=== PATIENT | female | born 1985 ===

== ENCOUNTER 2017-08-27 07:26 | Inpatient (IN) | payer MEDICAID ==
[2017-08-27] MEDS ORDERED: Oxytocin 30 units/LR 500ML 30 U/500 ML BAG IV ONE (07:36)
[2017-08-27] MEDS ORDERED: ceFAZolin IV 2 gm in Dextrose 2 GM/50 ML BAG IVPB ONE (08:30)
[2017-08-27] MEDS: Lactated Ringer's 2,000 ML IV SCH ×2 (08:30→09:30)
[2017-08-27 08:44] LABS: BASO % 0.6 % (0.0-2.0); EOS # 0.1 K/uL (0.0-0.7); EOS % 1.5 % (0.0-4.0); HEMOGLOBIN 11.2 g/dL (12.0-16.0); LYMPH # 1.5 K/uL (1.0-4.3); LYMPH % 21.6 % (20.0-40.0); MEAN CELL VOLUME 81.9 fl (81.0-99.0); MEAN CORPUSCULAR HEMOGLOBIN 27.2 pg (27.0-31.0); MEAN CORPUSCULAR HGB CONC 33.2 g/dL (33.0-37.0); MEAN PLATELET VOLUME 7.9 fl (7.2-11.7); MONO # 0.6 K/uL (0.0-0.8); MONO % 7.8 % (0.0-10.0); NEUT # 4.9 K/uL (1.8-7.0); NEUT % 68.5 % (50.0-75.0); NRBC % 0.1 % (0.0-0.0); RBC 4.13 Mil/uL (3.80-5.20); RED CELL DISTRIBUTION WIDTH 15.9 % (11.5-14.5); WHITE BLOOD COUNT 7.1 K/uL (4.8-10.8)
--- NOTE | 2017-08-27 10:56 | OBADHP ---
Datetime: 08/27/2017 07:45 Admit Comment, IP Provider: 31 yo EGA 39 confirmed by ultrasound present for scheduled repea t c/s. + FM. Denies: CTX, VB, LOF. ROS: Denies: dizziness, headache, blurred vision, CP/SOB, N/V, dysuria PNC: Dr. Barnes. Labs: HIV: NEG; HBSAG: NEG; GBS: NEG; RUBELLA: IM; GC: NEG; C: NEG; RPR: NEG; O+, Ab: neg. obhx: c/s 2013 FT, failed IOL. pmhx: denies std famhx: none soc: lives with and son. no smoking, alcohol, illicit drugs surg: c/s 2013 NKDA Meds: PNV O: General: AAOx3 Cardiac: S1S2 no murmurs Lungs: CTA bilaterally, no wheezing Abodmen: gravid, nontender, active bowel sounds CTA non tender No calf pain A/P: 31 yo F w/ IUP 39.4 presents for scheduled repeat c/s. -Admit to L_d for c/s -Labs: CBC, Type and screen, -IVF: 1 L LR bolus -Abx: Ancef 2 gm IV Case d/w Dr. Barnes YBecerra PGY 1 Pelvic Type - PN: Not Done Extremities - PN: Normal Abdomen - PN: Normal Back - PN: Normal Breast - PN: Not Done Lungs - PN: Normal Heart - PN: Normal Thyroid - PN: Not Done Neurologic - PN: Normal HEENT - PN: Normal General - PN: Normal Membranes, Provider: Intact Vital Signs Provider: Reviewed; Within Normal Limits IP Chief Complaint: Scheduled Section NICHD Decel Fetus A IP Provider: None (Annotations: Data stored by CPN on behalf of user) Genitourinary Exam: Not Done DTRs - PN: Normal IP Adm Impression: Term, intrauterine ; No Active Labor; Intact Membranes IP Admit Plan: Admit to unit; Initiate Section protocol
[2017-08-27] MEDS ORDERED: DiphenhydrAMINE 50 mg/ml Inj IVP PRN ×2 (12:35→19:45)
[2017-08-27] MEDS ORDERED: Oxycodone/Acetaminophen 5/325 mg Tab PO PRN (13:15)
[2017-08-27] MEDS ORDERED: Lactated Ringer's 1,000 ML IV SCH ×2 (18:30→19:45)
[2017-08-28 06:37] LABS: BASO % 0.3 % (0.0-2.0); EOS % 0.4 % (0.0-4.0); HEMOGLOBIN 10.1 g/dL (12.0-16.0); LYMPH # 1.1 K/uL (1.0-4.3); LYMPH % 9.5 % (20.0-40.0); MEAN CELL VOLUME 82.3 fl (81.0-99.0); MEAN CORPUSCULAR HEMOGLOBIN 27.3 pg (27.0-31.0); MEAN CORPUSCULAR HGB CONC 33.1 g/dL (33.0-37.0); MEAN PLATELET VOLUME 7.8 fl (7.2-11.7); MONO # 0.8 K/uL (0.0-0.8); MONO % 6.9 % (0.0-10.0); NEUT # 9.4 K/uL (1.8-7.0); NEUT % 82.9 % (50.0-75.0); NRBC % 0.1 % (0.0-0.0); PLATELET COUNT 205 K/uL (130-400); RBC 3.72 Mil/uL (3.80-5.20); WHITE BLOOD COUNT 11.3 K/uL (4.8-10.8)
[2017-08-28] MEDS: Oxycodone/Acetaminophen 5/325 mg Tab PO PRN ×2 (08:43→21:04)
[2017-08-28 09:04] LABS: BANDS 4 % (0-2); BASOPHIL 1 % (0-2); EOSINOPHIL 1 % (0-7); LYMPHOCYTE 11 % (20-50); MONOCYTE 6 % (0-10); NEUTROPHIL 77 % (42-75); TOTAL CELLS COUNTED 100
[2017-08-28 09:05] LABS: ANISOCYTOSIS SLIGHT; HYPOCHROMIC SLIGHT; PLATELET ESTIMATE NORMAL (NORMAL)
--- NOTE | 2017-08-28 11:17 | OBDS ---
DELIVERY PERSONNEL Delivery Doctor: Sandra Barnes MD Scrub Nurse: Mitzi Kraus OBT Certified Diabetes Educator: Hank Conrad RN/ Paola Hart RN Anesthesiologist: Dr Draper Resident: Dr Jeffers _ Dr Barlow MATERNAL INFORMATION Delivery Anesthesia: Spinal Medications in Delivery: Pitocin 30 units _ Surgicel Estimated Blood Loss (ml): 800 Placenta Cultured: No Maternal Complications: None Provider Comments: See Operative Notes LABOR SUMMARY EDC: 09/03/2017 00:00 No. Babies in Womb: 1 Attempted: No Labor Anesthesia: None LABOR INFORMATION Reason for Induction: Not Applicable Other Ripening Agents: N/A Oxytocin: N/A Group B Beta Strep: Negative Antibiotics # of Doses: N/A Antibiotics Time of Last Dose: N/A Steroids Given: None Reason Steroids Not Administered: Not Applicable Other Reason Not Administered: N/A MEMBRANES Membranes Rupture Method: Artificial Rupture of Membranes: 08/27/2017 12:17 Length of Rupture (hrs): 0.00 Amniotic Fluid Color: Clear Amniotic Fluid Amount: Moderate Amniotic Fluid Odor: Normal STAGES OF LABOR Stage 3 hrs: 0 Stage 3 min: 1 CSECTION DELIVERY Primary Indication: Repeat Elective Secondary Indication: Repeat Elective CSection Urgency: Elective CSection Incidence: Repeat Labor: Labor Elective: Elective CSection Incision: Lower Uterine Transverse BABY A INFORMATION Delivery Date/Time: 08/27/2017 12:17 Method of Delivery: Born in Route : No : N/A Forceps: N/A Vacuum Extraction: N/A Shoulder Dystocia : No SHOULDER DYSTOCIA BABY A Infant Delivery Date/Time: 08/27/2017 12:17 PRESENTATION/POSITION BABY A Presentation: Cephalic Cephalic Presentation: Vertex Breech Presentation: N/A PLACENTA INFORMATION BABY A Placenta Delivery Time : 08/27/2017 12:18 Placenta Method of Delivery: Manual Removal Placenta Status: Delivered SCORES BABY A Heart Rate 1 min: >100 bpm Resp Effort 1 min: Slow, Irregular Reflex Irritability 1 min: Cough or Sneeze or Pulls Away Muscle Tone 1 min: Active Motion Color 1 min: Body [place], Extremities Blue Resuscitation Effort 1 min: Tactile Stimulation; Oxygen; PPV/NCPAP SCORE 1 MIN: 8 Heart Rate 5 min: >100 bpm Resp Effort 5 min: Good Cry Reflex Irritability 5 min: Cough or Sneeze or Pulls Away Muscle Tone 5 min: Active Motion Color 5 min: Body [place], Extremities Blue Resuscitation Effort 5 min: Tactile Stimulation SCORE 5 MIN: 9 INFORMATION BABY A Gestational Age at Delivery: 39.0 Gestational Status: Term Outcome : Liveborn Infant Condition : Stable Sex: Female IDENTIFICATION/MEDS BABY A ID Band Number: [id number] ID Band Location: Left Leg; Left Arm Vitamin K Given : Not Given Erythromycin Given: Not Given WEIGHT/LENGTH BABY A Infant Birthweight (gms): 3510 Infant Weight (lb): 7 Infant Weight (oz): 12 CORD INFORMATION BABY A No. Cord Vessels: 3 Nuchal Cord : N/A Nuchal Cord Other: N/A True Knot: 0 Infant Cord pH Baby Arterial: N/A Infant Cord pH Baby Venous: N/A Cord Blood Taken: Yes Banking/Donate Info: N/A Suction: Mouth; Nose ASSESSMENT BABY A Complications: Other Infant Complications Other: Baby tachypneic Physical Findings at Delivery: Within Normal Limits Respirations: Tachypnea Spa Therapist/ALS Called : No Infant Care By: Dr Parish/ Vanda Paul RN Transferred To: [facility]
--- NOTE | 2017-08-28 11:19 | OBPPN ---
Datetime: 08/28/2017 07:15 PP Pain Prov: Within normal limits PP Nausea Prov: Denies PP Flatus Prov: No PP BM Prov: No PP Breasts Prov: Not Done PP Heart Prov: Normal PP Lungs Prov: Normal PP Abdomen/Uterus Prov: Normal PP Lochia Prov: Normal PP Vulva/Perineum Prov: Not Done PP CVA Tenderness Prov: Normal PP Extremities Prov: Normal PP C/S Incision Prov: Normal PP Progress Prov: Normal PP Impression Prov: Normal progression PP Plan Prov: Continue present management PP Progress Note Prov: POD 1 S: 31 yo GP s/p on 08/27/2017. Pt. is seen and examined at bedside this AM. No overnight events. Pt reports mild abdominal pain, but well controlled with pain meds. D/c mcrae, dressing remov ed, incision site healing well, no exudate seen, dry and intact. No nausea, advised to advance diet a s tolerated. Breast feeding without difficulty. Lochia is similar to menses volume. No bowel movement or passing gas per rectum. Denies fever/chills, diarrhea, nausea/vomiting, chest pain, dyspnea, and dizziness. O: VS: stable GEN: NAD Cardio: S1S2, no murmurs Lungs: clear breath sounds b/l, no wheezing Abdomen: BS+, tenderness to palpation. Incision scar noted, well healing with no exudate seen, dry and intact. Uterus is firm and at the level of the umbilicus. EXT: No edema, calves nontender NEURO/PSYCH: AAOx3, no grossly focal deficits, preserved affect and mood. Assessment/Plan: 31 yo GP s/p on 08/27/2017. Pt remains afebrile, tolerating pain with me dication, doing well on POD#1. OOB with caution SCDs for DVT prophylaxis, encouraged ambulating Percocet 5/325mg, and Motrin 600mg for pain. Colace 100mg PO BID/Senokot 17.2 mg for constipation Encourage and ambulating f/u CBC post op, pending Tdap before d/c Anticipated d/c to home, 08/30/2017. Case dw OB attending --- Alex Negrete MD PGY-1 Patient seen and examined by me this am. Agree wtih above note except, no TDAP needed. Given antep artum 1 month ago. Continue post care and encouraged. --Dr. Barnes IP PP Procedures: None Vital Signs Provider PP: Reviewed; Within Normal Limits
--- NOTE | 2017-08-29 13:04 | OBPPN ---
Datetime: 08/29/2017 13:01 PP Breasts Prov: Normal PP Heart Prov: Normal PP Lungs Prov: Normal PP Lochia Prov: Normal PP Impression Prov: Normal progression PP Plan Prov: Continue present management PP Progress Note Prov: Patient POD#2 s/p repeat csection --Encouraged breast feeding and ambulation --Regular diet --Pain meds as needed
--- NOTE | 2017-08-30 09:58 | OBPPN ---
Datetime: 08/30/2017 07:00 PP Pain Prov: Within normal limits PP Nausea Prov: Denies PP Flatus Prov: Yes PP BM Prov: Yes PP Breasts Prov: Not Done PP Heart Prov: Normal PP Lungs Prov: Normal PP Abdomen/Uterus Prov: Normal PP Lochia Prov: Normal PP Vulva/Perineum Prov: Not Done PP CVA Tenderness Prov: Normal PP Extremities Prov: Normal PP C/S Incision Prov: Normal PP Progress Prov: Normal PP Impression Prov: Normal progression PP Plan Prov: Discharge PP Progress Note Prov: POD 3 S: 31 yo GP s/p on 08/27/2017. Pt. is seen and examined at bedside this AM. No overnight events. Pt reports mild abdominal pain, but well controlled with pain meds. D/c mcrae, dressing remov ed, incision site healing well, no exudate seen, dry and intact. No nausea, advised to advance diet a s tolerated. Breast feeding without difficulty. Lochia is similar to menses volume. Bowel movement an d passing gas per rectum. Denies fever/chills, diarrhea, nausea/vomiting, chest pain, dyspnea, and di zziness. O: VS: stable GEN: NAD Cardio: S1S2, no murmurs Lungs: clear breath sounds b/l, no wheezing Abdomen: BS+, tenderness to palpation. Incision scar noted, well healing with no exudate seen, dry and intact. Uterus is firm and at the level of the umbilicus. EXT: No edema, calves nontender NEURO/PSYCH: AAOx3, no grossly focal deficits, preserved affect and mood. Assessment/Plan: 31 yo GP s/p on 08/27/2017. Pt remains afebrile, tolerating pain with me dication, doing well on POD#3. OOB with caution SCDs for DVT prophylaxis, encouraged ambulating Percocet 5/325mg, and Motrin 600mg for pain. Encourage and ambulating f/u CBC post op: 10.1/30.6 Anticipated d/c to home, 08/30/2017. Case dw OB attending --- Alex Negrete MD PGY-[address] Leigh: I have evaluated the patient independently and I agree with the above IP PP Procedures: None Vital Signs Provider PP: Reviewed; Within Normal Limits
--- NOTE | 2017-08-30 09:58 | OBDCSUM ---
Datetime: 08/30/2017 07:00 Discharged to, Provider: Home Follow up at, Provider: Dr. Barnes Disch Instr Activity: Normal activity Disch Instr Diet: Regular Discharge Instructions, Provider: Routine instructions given Discharge Diagnosis, Provider: Term Delivered Discharge Time: 08/30/2017 10:00 Follow up in weeks, Provider: 4-7 days wound care; 6 weeks PP Disch Referrals: None Contraception discussed, Prov: Yes Disch Activity Restrictions: No lifting; Nothing in vagina - [place], tampons, douche Discharge Comment, Provider: Discharge Summary DOA: 08/27/2017 EGA: 39.0 Diagnosis: Term Risk factors: hx c/s Summary of : 31 yo F L_D summary DOL: 08/27/2017 at 12:17 NB: F : 8/9 Weight: 3510 g PP summary No serious complications during Post-Op. Lochia= menses, mild pain, controlled with medications Rubella immune, Tdap 07/19/17 Blood type: O+ CBC pp: Discharge Date: 08/30/2017 Time 10:00 AM Discharge Instructions: -encourage -percocet/Ibuprofen for pain PRN -Ambulate as tolerated -f/u NB visit 3-7 days w/ valve mechanic and PP visit 6 weeks with OB; Wound care 4-7 days Case d/w OB attending --- Alex Negrete MD PGY-1 Contraception after Delivery: IUD
--- NOTE | 2017-08-30 13:01 | OP ---
PROCEDURE DATE: 08/27/2017 PREOPERATIVE DIAGNOSIS: Term with previous section. POSTOPERATIVE DIAGNOSIS: Term with previous section, delivered. PROCEDURE: Repeat low transverse section. SURGEON: Red Barnes MD STRETCHING MACHINE TENDER FRAME: Osman Harry MD ESTIMATED BLOOD LOSS: 800 mL. URINE OUTPUT: 500 mL, clear at the end of procedure. INTRAVENOUS FLUIDS: 200 mL lactated Ringer's. CLOSURE: Ada. ANESTHESIA: Spinal. FINDINGS: A live male, Apgars of 8 and 9, weight 3510 gms, delivered at 12:17 p.m. in vertex presentation, amniotic fluid clear. Adhesions of the uterus to the anterior abdominal wall were noted and taken down. Bilateral tubes and ovaries appeared grossly normal. DESCRIPTION OF PROCEDURE: The patient was taken to the operating room and given spinal anesthesia without difficulty. She was then prepped and draped in the normal sterile fashion, dorsal supine position with leftward tilt. A Pfannenstiel skin incision was then made with the scalpel through the previous scar and carried to the underlying fascia with the Bovie. The fascia was incised in the midline and the incision was extended laterally using the Bovie. The inferior aspect of the fascial incision was then grasped with Ynes clamps, elevated, and the underlying rectus muscles were dissected off sharply with the Bovie, then bluntly. The inferior aspect of the fascial incision was grasped with Ynes clamps, elevated and the rectus muscles were taken off sharply with the Bovie, then bluntly. The rectus muscles were meticulously in the midline. The peritoneum was identified, tented up and entered with Metzenbaum scissors. At this time, adhesions were then seen to the anterior abdominal wall. These were taken down with the cautery and Metzenbaum scissors meticulously. This peritoneal incision was then also extended laterally, superiorly and inferiorly paying close attention to the bladder. The bladder blade was inserted and the vesicouterine peritoneum was then seen and tented up and entered with Metzenbaum scissors. This was then extended laterally and a bladder flap was created digitally. The bladder blade was reinserted and the lower uterine segment was then incised in a transverse fashion with the scalpel. This incision was then extended cephalocaudally bluntly and the was then delivered atraumatically. The nose and mouth were suctioned on the abdomen. The cord was doubly clamped and cut and the was handed off to the awaiting lead worker of housekeeping and laundry. Cord blood was then taken. The placenta was extracted spontaneously and intact. The uterus was exteriorized and cleared off all clots and debris. The uterine incision was then closed with 1 Vicryl in a running locked fashion and two further [id number] sutures were then placed in the uterine incision and good hemostasis was noted. Inspection of the tubes and ovaries revealed grossly normal findings. The copious irrigation was performed. The uterus was returned to the abdomen. The gutters were cleared off all clots. Adequate hemostasis was then again noted over the uterine incision and Surgicel was placed over this incision as well. The peritoneum was then closed with 2-0 Vicryl in a running fashion and three further horizontal mattress sutures were then placed in the muscle layer for reapproximation. The fascia was reapproximated using 0 Vicryl in a running fashion to the midline. The Bovie was used to obtain good hemostasis on the subcutaneous fat and this layer was also closed with four interrupted stitches using a 3-0 plain suture and the skin was closed with ada and the incision was covered with sterile dressing. The patient tolerated the procedure well. Sponge, lap, and needle counts were correct x4. Ancef 2 gm was given preoperatively. The patient was taken to the recovery room in stable condition. There was no injury to the bladder, bowel, ureter or baby. Due to the nature of this case, an quality assistant was requested and my quality assistant, Dr. Harry, was present for the entire procedure from the initial incision to the patient's transfer to the recovery room. He assisted with entry through the layers of the abdomen and the uterus, delivery of the baby, and closure of all layers of the abdomen including the uterus, peritoneum, rectus muscle, fascia, and subcutaneous fat. He assisted with lysis of adhesions. He provided great exposure to ensure hemostasis and decrease blood loss. His assistance was vital to this procedure. Red Barnes MD ABHINAV
[2017-08-30 18:24] VITALS: BP 106/67; PULSE 81; RESP 20; TEMP 98.2; O2SAT 100
== END 2017-08-30 14:05 | disposition home or self-care (01) | DRG 371 ==
LOC: H.L&D 07:35 → H.OB/GYN 16:02
PROVIDERS: ADMIT Obstetrics & Gynecology; ATTEND Obstetrics & Gynecology
PROC: 10D00Z1 Extraction of Products of Conception, Low, Open Approach (ICD-10-PCS; principal; 2017-08-27)
PROC: 4A1HXCZ Monitoring of Products of Conception, Cardiac Rate, External Approach (ICD-10-PCS; 2017-08-27)
DX: O34.211 Maternal care for low transverse scar from previous cesarean delivery (principal); O99.89 Other specified diseases and conditions complicating pregnancy, childbirth and the puerperium; N73.6 Female pelvic peritoneal adhesions (postinfective); Z3A.39 39 weeks gestation of pregnancy; Z37.0 Single live birth

== ENCOUNTER 2017-08-31 11:12 | Emergency (ER) | payer MEDICAID ==
[2017-08-31 11:28] VITALS: BP 111/65; PULSE 61; RESP 19; TEMP 98.1; O2SAT 99
--- NOTE | 2017-08-31 12:10 | ED PDOC ---
HPI: Wound Care - HPI Time Seen by Provider: 08/31/17 11:36 Chief Complaint (Nursing): Abnormal Skin Integrity Chief Complaint (Provider): Abnormal Skin Integrity History Per: Patient Exam Limitations: no limitations Onset/Duration Of Symptoms: Days (x5 since , x1 since discharge noted) Current Symptoms Are (Timing): Still Present Additional Complaint(s): 31 year old female presents to the emergency department for evaluation of her c- section incision five days after lisa were places due to discharge noted last night. Patient denies fever and any other complaints at this time. PMD: none provided Past Medical History Reviewed: Historical Data, Nursing Documentation, Vital Signs Vital Signs: Last Vital Signs Temp 98.1 F 08/31/17 11:28 Pulse 61 08/31/17 11:28 Resp 19 08/31/17 11:28 BP 111/65 08/31/17 11:28 Pulse Ox 99 08/31/17 11:28 - Medical History PMH: No Chronic Diseases Denies: Depression, Diabetes, HTN - Surgical History Surgical History: (x2) - Family History Family History: States: Unknown Family Hx - Social History Current smoker - smoking cessation education provided: No Alcohol: None Drugs: Denies - Allergies Allergies/Adverse Reactions: Allergies Allergy/AdvReac Type Severity Reaction Status Date / Time No Known Allergies Allergy Verified 08/31/17 11:39 Review of Systems ROS Statement: Except As Marked, All Systems Reviewed And Found Negative Constitutional: Negative for: Fever Skin: Positive for: Other (discharge from incision site on lower abdomen) Physical Exam - Reviewed Nursing Documentation Reviewed: Yes Vital Signs Reviewed: Yes - Physical Exam Appears: Positive for: No Acute Distress Head Exam: Positive for: ATRAUMATIC, NORMOCEPHALIC Skin: Positive for: Normal Color, Warm, Dry Eye Exam: Positive for: Normal appearance Cardiovascular/Chest: Positive for: Regular Rate, Rhythm. Negative for: Murmur Respiratory: Positive for: Normal Breath Sounds. Negative for: Accessory Muscle Use, Respiratory Distress Gastrointestinal/Abdominal: Positive for: Normal Exam, Soft, Other (Horizontal lower abd incision with lisa intact; scant dried serous material left incision with no erythema, edema, induration, and fluctuance). Negative for: Tenderness Neurologic/Psych: Positive for: Alert, Oriented (x3). Negative for: Motor/ Sensory Deficits - ECG O2 Sat by Pulse Oximetry: 99 (RA) Pulse Ox Interpretation: Normal Medical Decision Making Medical Decision Makin:[address] Deluca who will further evaluate the patient. 12:17 Dr. Deluca evaluated patient in the ED, can discharge home. Scribe Attestation: Documented by Yanet Combs, acting as a scribe for Maribell Vitale MD. Provider Scribe Attestation: All medical entries made by the Scribe were at my direction and personally dictated by me. I have reviewed the chart and agree that the record accurately reflects my personal performance of the history, physical exam, medical decision making, and the department course for this patient. I have also personally directed, reviewed, and agree with the discharge instructions and disposition. Disposition - Clinical Impression Clinical Impression: Visit for wound check - Disposition [facility] Disposition: Routine/Home Disposition Time: 12:15 Condition: STABLE Instructions: Surgical Wound (DC), Postoperative Pain (DC) Forms: [employer] (Sammarinese) Print Language: [id number]
== END 2017-08-31 12:35 | disposition home or self-care (01) ==
LOC: H.ER 11:12
DX: Z48.89 Encounter for other specified surgical aftercare (principal)